=== PATIENT | female | born 1945 | race Caucasian/White ===

== ENCOUNTER 2017-09-20 15:57 | Emergency (ER) | payer OTHER, MEDICARE ==
[~2017-09-20] VITALS: Ht 162.6 cm; Wt 61.0 kg
[2017-09-20 17:01] LABS: HEMOGLOBIN 12.9 G/DL (11.9-15.5); MCH 29.7 PG (29.0-34.0); MCHC 33.9 G/DL (30.0-36.0); MCV 87.4 FL (83-99); PLATELET COUNT 272 K/uL (156-360); RBC DIS.WIDTH-CV 12.4 % (11.8-14.6); RBC DIS.WIDTH-SD 39.7 % (39-53); RED BLOOD COUNT 4.35 M/uL (3.80-5.20); WHITE BLOOD COUNT 7.6 K/uL (4.1-10.2)
[2017-09-20 17:11] LABS: ALBUMIN 4.7 g/dL (3.2-4.8); CHLORIDE 103 mEq/L (99-109); POTASSIUM 4.5 mEq/L (3.7-5.4); SODIUM 141 mEq/L (136-147)
[2017-09-20 17:12] LABS: D-DIMER ELISA < 150.00 ng/mLDDU (<230)
[2017-09-20 17:13] LABS: GLUCOSE 142 mg/dL (70-99); TOTAL PROTEIN 7.9 g/dL (6.4-8.3)
[2017-09-20 17:15] LABS: TOTAL BILIRUBIN 0.6 mg/dL (0.0-1.0)
[2017-09-20 17:17] LABS: ALKALINE PHOSPHATASE 70 IU/L (3-129); CREATININE 1.1 mg/dL (0.6-1.3); GFR ESTIMATE (CALCULATED) 52 mL/min/
[2017-09-20 17:18] LABS: UREA NITROGEN (BUN) 23 mg/dL (9-23)
[2017-09-20 17:19] LABS: AST (GOT) 27 IU/L (2-34)
[2017-09-20 17:20] LABS: ALT (GPT) 14 IU/L (3-49); LIPASE 63 U/L (1.0-51.0)
[2017-09-20 17:22] LABS: TROP-I INTERPRETATION NEGATIVE; TROPONIN-I < 0.01 ng/mL (0.0-0.30)
[2017-09-20 21:17] LABS: TROP-I INTERPRETATION NEGATIVE; TROPONIN-I < 0.01 ng/mL (0.0-0.30)
[2017-09-20] MEDS ORDERED: ROBAXIN750 MG PO (22:12)
[2017-09-20 22:25] VITALS: BP 133/70
== END 2017-09-20 22:26 | disposition home or self-care (01) ==
LOC: EME 15:57
PROVIDERS: Emergency Medicine
DX: R07.9 Chest pain, unspecified (principal)
CPT/HCPCS: 71046; 80053; 83690; 84484; 85027; 85379; 85610; 85730; 86850; 86900; 86901; 93005; 99281; 99285